=== PATIENT | female | born 1965 | race Caucasian/White ===

== ENCOUNTER 2016-09-03 14:13 | Emergency (ER) | payer OTHER ==
[~2016-09-03] VITALS: Ht 165.1 cm; Wt 77.1 kg
[~2016-09-03 14:13] MED LIST: NAPROSYN500 MG PO; PERCOCET 325 MG1 TA5 PO; PRILOSEC20 MG PO; PROZAC20 MG PO; SEROQUEL300 MG PO; VICODIN 500 MG-1 TAB PO; XANAX1 MG PO
[2016-09-03 14:30] VITALS: BP 129/83
[2016-09-03 14:48] LABS: BASO % 0.3 % (0.0-1.0); EOS # 0.1 10*3/uL (0.0-0.4); EOS % 1.8 % (1.0-4.0); HEMATOCRIT 37.9 % (37.0-47.0); HEMOGLOBIN 12.7 g/dl (12.0-16.0); LYMPH # 2.7 10*3/uL (1.3-4.4); LYMPH % 37.2 % (27.0-41.0); MEAN CORPUSCULAR HGB 30.8 pg (27.0-31.0); MEAN CORPUSCULAR HGB CONC 33.5 g/dl (33.0-37.0); MEAN PLATELET VOLUME 9.8 fl (9.6-12.3); MONO # 0.5 10*3/uL (0.1-1.0); MONO % 6.3 % (3.0-9.0); NEUT % 54.3 % (47.0-73.0); PLATELET COUNT AUTOMATED 259 10*3/uL (130-400); RED BLOOD COUNT 4.12 10*6/uL (4.10-5.10); RED CELL DISTRI WIDTH 13.3 % (0-14.5); WHITE BLOOD COUNT 7.3 10*3/uL (4.8-10.8)
[2016-09-03 14:56] LABS: INTERNATIONAL NORM RATIO 0.9 (2.0-3.5)
[2016-09-03 15:02] LABS: ALBUMIN 3.6 gm/dl (3.1-4.5); BILIRUBIN, TOTAL 0.3 mg/dl (0.2-1.0); POTASSIUM 4.4 mmol/L (3.5-5.1); TOTAL PROTEIN 7.1 gm/dL (6.4-8.2)
== END 2016-09-03 16:34 | disposition home or self-care (01) ==
LOC: ED 14:13
PROVIDERS: Physician Assistant
DX: M79.662 Pain in left lower leg (principal); E86.0 Dehydration; Z79.899 Other long term (current) drug therapy

== ENCOUNTER → 2017-04-11 | Outpatient (CLI) | payer OTHER | END | disposition home or self-care (01) | LOC: RAD 13:55 | DX: R09.89 Other specified symptoms and signs involving the circulatory and respiratory systems (principal); Z87.01 Personal history of pneumonia (recurrent) ==

== ENCOUNTER 2017-11-08 07:53 | Inpatient (IN) | payer OTHER ==
[~2017-11-08] VITALS: Ht 165.1 cm; Wt 83.5 kg
--- NOTE | ~2017-11-08 | EKG ---
[place], [place] ELECTROCARDIOGRAM REPORT NAME: MJ WALL UNIT #: [id number] ROOM: 528 DOCTOR: JULIEN DRAFT REPORT BIRTHDATE: [birth year] [facility] Test Date: 2017-11-08 Test Time: 13:59:47 Pat Name: MJ WALL Department: Room: 528 Gender: F Percussion Instrument Repairer: JINNY : 1965 Requested By: ASHKAN ARIAS Order Number: [id number] Reading MD: Marissa Mahajan MD Measurements Intervals [place] Rate: 97 P: 34 NM: 122 QRS: 33 QRSD: 95 T: 11 QT: 346 QTc: 440 Interpretive Statements Sinus rhythm Abnormal R-wave progression, early transition Borderline T wave abnormalities Electronically Signed On 11-10-2017 9:36:50 PDT by Marissa Mahajan MD CM:EKGRPT:ELECTROCARDIOGRAM REPORT [id number] ASHKAN VICTORIA DRAFT REPORT ASHKAN ARIAS MD
--- NOTE | ~2017-11-08 | EKG ---
[place], [place] ELECTROCARDIOGRAM REPORT NAME: MJ WALL UNIT #: [id number] ROOM: 528 DOCTOR: JULIEN DRAFT REPORT BIRTHDATE: [birth year] [facility] Test Date: 2017-11-08 Test Time: 11:04:13 Pat Name: MJ WALL Department: Room: 528 Gender: F Credit Risk Specialist: JINNY : 1965 Requested By: ASHKAN ARIAS Order Number: [id number] Reading MD: Marissa Mahajan MD Measurements Intervals [place] Rate: 95 P: 42 [place]: 133 QRS: 52 QRSD: 96 T: 6 QT: 349 QTc: 439 Interpretive Statements Sinus rhythm Abnormal R-wave progression, early transition Borderline T abnormalities, anterior leads Electronically Signed On 11-10-2017 9:36:26 PDT by Marissa Mahajan MD CM:EKGRPT:ELECTROCARDIOGRAM REPORT [id number] ASHKAN VICTORIA DRAFT REPORT ASHKAN ARIAS MD
--- NOTE | ~2017-11-08 | EKG ---
[place], [place] ELECTROCARDIOGRAM REPORT NAME: MJ WALL UNIT #: [id number] ROOM: 528 DOCTOR: JULIEN DRAFT REPORT BIRTHDATE: [birth year] [facility] Test Date: 2017-11-08 Test Time: 08:01:10 Pat Name: MJ WALL Department: Room: 528 Gender: F Fixer Supervisor: Johana Cartagena : 1965 Requested By: ASHKAN ARIAS Order Number: [id number] Reading MD: Marissa Mahajan MD Measurements Intervals [place] Rate: 91 P: 34 [place]: 121 QRS: 39 QRSD: 96 T: 5 QT: 356 QTc: 439 Interpretive Statements Sinus rhythm Borderline T abnormalities, diffuse leads Electronically Signed On 11-10-2017 9:36:11 PDT by Marissa Mahajan MD CM:EKGRPT:ELECTROCARDIOGRAM REPORT [id number] ASHKAN VICTORIA DRAFT REPORT ASHKAN ARIAS MD
[2017-11-08 07:53] VITALS: BP 157/109
[2017-11-08 08:12] LABS: BASO % 0.3 % (0.0-1.0); EOS # 0.1 10*3/uL (0.0-0.4); EOS % 1.2 % (1.0-4.0); HEMATOCRIT 36.8 % (37.0-47.0); HEMOGLOBIN 12.3 g/dl (12.0-16.0); LYMPH # 2.7 10*3/uL (1.3-4.4); LYMPH % 23.6 % (27.0-41.0); MEAN CELL VOLUME 95.1 fl (81.0-99.0); MEAN CORPUSCULAR HGB 31.8 pg (27.0-31.0); MEAN CORPUSCULAR HGB CONC 33.4 g/dl (33.0-37.0); MEAN PLATELET VOLUME 9.8 fl (9.6-12.3); MONO # 0.7 10*3/uL (0.1-1.0); MONO % 5.9 % (3.0-9.0); NEUT # 7.7 10*3/uL (2.3-7.9); NEUT % 68.6 % (47.0-73.0); PLATELET COUNT AUTOMATED 225 10*3/uL (130-400); RED BLOOD COUNT 3.87 10*6/uL (4.10-5.10); RED CELL DISTRI WIDTH 13.2 % (0-14.5); WHITE BLOOD COUNT 11.3 10*3/uL (4.8-10.8)
[2017-11-08 08:23] VITALS: BP 138/99
[2017-11-08 08:23] LABS: ACT PARTIAL THROMBO TIME 25.6 SECONDS (20.8-31.5); INTERNATIONAL NORM RATIO 0.9 (2.0-3.5)
[2017-11-08 08:29] LABS: ALBUMIN 3.6 gm/dl (3.1-4.5); ALKALINE PHOSPHATASE 79 U/L (45-117); BUN 22 mg/dl (7-24); CHLORIDE 107 mmol/L (98-107); CREATININE 1.21 mg/dL (0.55-1.02); SGOT/AST 16 IU/L (3-35); SGPT/ALT 30 U/L (12-78); SODIUM 142 mmol/L (136-145); TOTAL PROTEIN 7.2 gm/dL (6.4-8.2)
[2017-11-08 08:31] LABS: TROPONIN I < 0.015 ng/ml (<0.045)
[2017-11-08 08:45] VITALS: BP 122/88
[2017-11-08 12:00] VITALS: BP 124/72
[2017-11-08 16:00] VITALS: BP 130/85
[2017-11-08 20:00] VITALS: BP 149/94
[2017-11-09] VITALS: BP 130/85
[2017-11-09 07:04] LABS: BASO % 0.2 % (0.0-1.0); EOS # 0.3 10*3/uL (0.0-0.4); EOS % 2.5 % (1.0-4.0); HEMATOCRIT 35.4 % (37.0-47.0); HEMOGLOBIN 11.7 g/dl (12.0-16.0); LYMPH # 1.5 10*3/uL (1.3-4.4); LYMPH % 13.2 % (27.0-41.0); MEAN CELL VOLUME 94.9 fl (81.0-99.0); MEAN CORPUSCULAR HGB 31.4 pg (27.0-31.0); MEAN CORPUSCULAR HGB CONC 33.1 g/dl (33.0-37.0); MONO # 0.6 10*3/uL (0.1-1.0); MONO % 5.5 % (3.0-9.0); NEUT # 8.6 10*3/uL (2.3-7.9); NEUT % 78.3 % (47.0-73.0); PLATELET COUNT AUTOMATED 209 10*3/uL (130-400); RED BLOOD COUNT 3.73 10*6/uL (4.10-5.10); RED CELL DISTRI WIDTH 13.2 % (0-14.5)
[2017-11-09 07:31] LABS: PHOSPHOROUS 2.6 mg/dL (2.5-4.9)
[2017-11-09 07:36] LABS: THYROID STIM HORMONE (HS) 1.89 uIU/ml (0.358-4.75)
[2017-11-09 08:00] VITALS: BP 127/78
[2017-11-09 08:09] LABS: VITAMIN D, 25-HYDROXY 12.7 ng/mL (30-100)
[2017-11-09] MEDS ORDERED: PANTOPRAZOLE SO40 MG PO (08:14)
[2017-11-09] MEDS ORDERED: VITAMIN D-32000 UNI1 PO (08:14)
[2017-12-10] MEDS ORDERED: VITAMIN D-32000 UNI1 PO (18:44)
[2017-12-10] MEDS ORDERED: PANTOPRAZOLE SO40 MG PO (18:44)
== END 2017-11-09 10:31 | disposition home or self-care (01) | DRG 313 ==
LOC: ED 07:53 → EDHOLD 08:19 → 5E 08:24
PROVIDERS: Emergency Medicine; Student in an Organized Health Care Education/Training Program
DX: R07.9 Chest pain, unspecified (principal); D72.810 Lymphocytopenia; K21.9 Gastro-esophageal reflux disease without esophagitis; F41.9 Anxiety disorder, unspecified; D72.829 Elevated white blood cell count, unspecified; R00.0 Tachycardia, unspecified; Z79.899 Other long term (current) drug therapy; Z87.01 Personal history of pneumonia (recurrent); Z80.8 Family history of malignant neoplasm of other organs or systems; Z84.89 Family history of other specified conditions

== ENCOUNTER → 2017-11-19 | Outpatient (CLI) | payer OTHER ==
[~2017-11-19] MED LIST changes: +PANTOPRAZOLE SO40 MG PO; +VITAMIN D-32000 UNI1 PO
--- NOTE | ~2017-11-19 | ST ---
[place], [place] EXERCISE STRESS TEST [id number] UN[facility] #: [id number] ROOM: DOCTOR: SHANDA NORTON,MARK BIRTHDATE: [birth year] DOS: 11/19/2017 EXERCISE NUCLEAR STRESS TEST. REFERRING PHYSICIAN: Dr. Martell and Dr. Vicente REASON FOR TEST: Chest pain. PHYSICAL EXAMINATION NECK: Supple. LUNGS: Clear anteriorly. HEART: Regular rhythm. PROTOCOL: Amarjit protocol. Total stress time 6 minutes 15 seconds. Maximum heart rate 146, which is 86% target heart rate. Peak blood pressure 128/64, adequate response. Total mets 7.4 mets. Monge treadmill score +6. SYMPTOMS: The patient is chest pain free. EKG: Resting EKG showed sinus rhythm. Stress EKG showed no ischemia, no arrhythmias. CONCLUSION: Clinically, the patient is chest pain free. EKG nonischemic. POST-STRESS COMPLICATIONS: None. MARK LAND MD CM:STRESS:EXERCISE STRESS TEST REPORT [id number] MARK LAND MD
== END | disposition home or self-care (01) ==
LOC: CARD 07:03
DX: R07.89 Other chest pain (principal)

== ENCOUNTER → 2018-05-13 | Day surgery (SDC) | payer OTHER ==
[~2018-05-13] VITALS: Ht 165.1 cm; Wt 77.1 kg
[~2018-05-13] MED LIST changes: +PEPCID20 MG PO
--- NOTE | ~2018-05-13 | O ---
[place], [place] OPERATIVE NOTE NAME: MJ WALL UNIT #: [id number] ROOM: DOCTOR: GIOVANNY NORTONLOTTIE BIRTHDATE: [birth year] DOS: 05/13/2018 GASTROENDOSCOPIC REPORT HISTORY OF PRESENT ILLNESS. A 52-year-old patient who was presented with chief complaint of change in bowel habits. Family history of colonic carcinoma, dyspepsia, on PPI trial. ALLERGIES: No known medication. PAST MEDICAL HISTORY: Anxiety. PAST SURGICAL HISTORY: Cervical ablation, breast biopsy negative. SOCIAL HISTORY: Nonsmoker, social alcohol consumer. FAMILY HISTORY: Grandfather with colonic carcinoma. MEDICATIONS: List has been reviewed. PROCEDURE: Today's procedure part of investigation is panendoscopy and colonoscopy. PREMEDICATION: Propofol. SCOPE: Olympus forward-viewing gastroscope Q10 video. REPORT: After putting the patient in left lateral position and application of lubricant to the scope, the scope was introduced. Thereafter, under direct visualization, advanced through the length of esophagus without difficulty. Irregular Z line at the esophagogastric junction was approached and irregularity is mild; however, multiple biopsies obtained ruling out coincidental Fernandez's. A 2 cm hiatal hernia noticed. Gastritis seen. Antral biopsy obtained. Duodenal bulb, second and third part within normal limit. The patient extubated after GI reflection of the scope, which reveals hiatal hernia to be benign. IMPRESSION: Irregular Z line, hiatal hernia, gastritis, status post biopsy. PLAN AND DISCUSSION: This patient requires to be on at least 20 mg of famotidine that I am going to place her on to reduce the acidity and exposure to a less acidic environment, antireflux measures with elevation of the head of the bed 6 inches all the time, avoiding greasy food and late eating and she should have elevation of the head of the bed at least 6 inches all time. Furthermore, awaiting H. pylori results and the Z-line biopsies. On the other hand, we are going to proceeding with colonoscopic evaluation. PROCEDURE #2 INDICATIONS: The patient has presented with chief complaint of family history of colonic carcinoma and grandfather, concerned about some change in bowel [place], [place] OPERATIVE NOTE NAME: MJ WALL UNIT #: [id number] ROOM: DOCTOR: GIOVANNY NORTON,LOTTIE BIRTHDATE: [birth year] habits. PROCEDURE: Today's procedure part of investigation is colonoscopy plus biopsy. PREMEDICATION: Propofol. SCOPE: Olympus forward-viewing colonoscope 10L video. REPORT: After putting the patient in left lateral position and application of lubricant to the scope, the scope was introduced. Thereafter, under direct visualization, advanced through the length of colon without difficulty. Colon mucosa and vascularity carefully examined. Base of cecum explored and tortuosity of hepatic flexure was easily experienced. This was maneuvered easily, scope was gradually withdrawn from ascending, transverse, descending colon. After the base of the cecum was photographed, appendiceal orifice identified, ileocecal valve was defined. Air was suctioned out. The patient was extubated, tolerated the procedure well. IMPRESSION: Tortuous colon. Otherwise, no colonic pathology. PLAN: High fiber diet. ACTIVITY: Ad jon. FOLLOWUP: Routinely with you in office. Follow-up colonoscopy in 10 years unless there are symptoms in which case follow-up should be as needed. Photographic series has been attached to the chart for future reference. Thank you very much indeed. LOTTIE BALTAZAR MD CM:OPRECORD:OPERATIVE NOTE [id number] LOTTIE BALTAZAR MD 06/16/18 1457 interface
[2018-05-13 07:30] VITALS: BP 124/82
[2018-05-13 09:25] VITALS: BP 135/77
[2018-05-13 09:40] VITALS: BP 123/87
[2018-05-13 09:55] VITALS: BP 121/77
== END | disposition home or self-care (01) ==
LOC: SDC 03-27 14:45
DX: K63.89 Other specified diseases of intestine (principal); K29.50 Unspecified chronic gastritis without bleeding; K21.0 Gastro-esophageal reflux disease with esophagitis; K44.9 Diaphragmatic hernia without obstruction or gangrene; Z80.0 Family history of malignant neoplasm of digestive organs; F32.9 Major depressive disorder, single episode, unspecified; F41.9 Anxiety disorder, unspecified; Z98.890 Other specified postprocedural states; Z79.899 Other long term (current) drug therapy

== ENCOUNTER → 2019-04-07 | Day surgery (SDC) | payer OTHER ==
[2019-04-05 14:02] LABS: BASO % 0.4 % (0.0-1.0); EOS # 0.1 10*3/uL (0.0-0.4); EOS % 0.7 % (1.0-4.0); HEMATOCRIT 40.6 % (37.0-47.0); HEMOGLOBIN 13.3 g/dl (12.0-16.0); LYMPH # 2.8 10*3/uL (1.3-4.4); MEAN CELL VOLUME 96.9 fl (81.0-99.0); MEAN CORPUSCULAR HGB 31.7 pg (27.0-31.0); MEAN CORPUSCULAR HGB CONC 32.8 g/dl (33.0-37.0); MEAN PLATELET VOLUME 9.5 fl (9.6-12.3); MONO # 0.5 10*3/uL (0.1-1.0); MONO % 6.3 % (3.0-9.0); NEUT % 59.4 % (47.0-73.0); PLATELET COUNT AUTOMATED 295 10*3/uL (130-400); RED BLOOD COUNT 4.19 10*6/uL (4.10-5.10); RED CELL DISTRI WIDTH 13.1 % (0-14.5); WHITE BLOOD COUNT 8.4 10*3/uL (4.8-10.8)
[2019-04-05 14:14] LABS: INTERNATIONAL NORM RATIO 0.9 (2.0-3.5)
[2019-04-05 14:23] LABS: CREATININE 1.28 mg/dL (0.55-1.02); POTASSIUM 4.6 mmol/L (3.5-5.1)
[2019-04-07] VITALS (8 sets, daily range): BP systolic 131–160; BP diastolic 67–99
[~2019-04-07] VITALS: Ht 165.1 cm; Wt 77.1 kg
[~2019-04-07] MED LIST changes: +DOXYCYCLINE100 M3 PO; +TRAMADOL HYDRO100 MG PO; +XARELTO10 MG PO
== END | disposition home or self-care (01) ==
LOC: SDC 04-01 13:15
PROVIDERS: Podiatrist
DX: M19.072 Primary osteoarthritis, left ankle and foot (principal); M21.962 Unspecified acquired deformity of left lower leg; M21.612 Bunion of left foot; K21.9 Gastro-esophageal reflux disease without esophagitis; F41.9 Anxiety disorder, unspecified; F32.9 Major depressive disorder, single episode, unspecified; Z88.8 Allergy status to other drugs, medicaments and biological substances; Z98.890 Other specified postprocedural states; Z82.3 Family history of stroke

== ENCOUNTER → 2019-04-27 | Outpatient (CLI) | payer OTHER ==
[2019-04-27 14:40] LABS: ALBUMIN 3.9 gm/dl (3.1-4.5); CREATININE 1.25 mg/dL (0.55-1.02); POTASSIUM 4.5 mmol/L (3.5-5.1); TOTAL PROTEIN 7.7 gm/dL (6.4-8.2)
== END | disposition home or self-care (01) ==
LOC: LAB 13:55
PROVIDERS: Pathology Hematology
DX: M19.072 Primary osteoarthritis, left ankle and foot (principal)

== ENCOUNTER → 2019-05-12 | Outpatient (CLI) | payer OTHER | END | disposition home or self-care (01) | LOC: US 13:00 | DX: M79.605 Pain in left leg (principal) ==

== ENCOUNTER → 2019-08-11 | Outpatient (CLI) | payer OTHER | END | disposition home or self-care (01) | LOC: COVID19 09:25 | DX: Z03.818 Encounter for observation for suspected exposure to other biological agents ruled out (principal) ==

== ENCOUNTER → 2019-09-17 | Outpatient (CLI) | payer OTHER | END | disposition home or self-care (01) | LOC: US 09-16 13:30 | DX: D25.1 Intramural leiomyoma of uterus (principal) ==

== ENCOUNTER → 2019-10-27 | Outpatient (CLI) | payer OTHER ==
[2019-10-27 13:22] LABS: BASO % 0.3 % (0.0-1.0); EOS # 0.1 10*3/uL (0.0-0.4); EOS % 1.6 % (1.0-4.0); HEMATOCRIT 40.6 % (37.0-47.0); LYMPH # 2.2 10*3/uL (1.3-4.4); LYMPH % 31.5 % (27.0-41.0); MEAN CELL VOLUME 95.3 fl (81.0-99.0); MEAN CORPUSCULAR HGB CONC 32.5 g/dl (33.0-37.0); MEAN PLATELET VOLUME 9.9 fl (9.6-12.3); MONO # 0.7 10*3/uL (0.1-1.0); MONO % 9.4 % (3.0-9.0); NEUT % 57.1 % (47.0-73.0); PLATELET COUNT AUTOMATED 290 10*3/uL (130-400); RED BLOOD COUNT 4.26 10*6/uL (4.10-5.10); RED CELL DISTRI WIDTH 14.1 % (0-14.5); WHITE BLOOD COUNT 6.9 10*3/uL (4.8-10.8)
[2019-10-27 13:51] LABS: ALBUMIN 3.6 gm/dl (3.1-4.5); CREATININE 1.26 mg/dL (0.55-1.02); POTASSIUM 4.1 mmol/L (3.5-5.1); TOTAL PROTEIN 7.7 gm/dL (6.4-8.2)
[2019-10-27 13:57] LABS: THYROID STIM HORMONE (HS) 2.1 uIU/ml (0.358-4.75)
== END | disposition home or self-care (01) ==
LOC: LAB 01:36
PROVIDERS: ATTEND Pathology Hematology
DX: R53.83 Other fatigue (principal); R73.03 Prediabetes

== ENCOUNTER → 2019-11-22 | Outpatient (CLI) | payer OTHER | END | disposition home or self-care (01) | LOC: MRI 11:00 | PROVIDERS: ATTEND Podiatrist | DX: M76.822 Posterior tibial tendinitis, left leg (principal); Z98.890 Other specified postprocedural states ==

== ENCOUNTER → 2019-11-26 | Outpatient (CLI) | payer OTHER | END | disposition home or self-care (01) | LOC: COVID19 02:33 | PROVIDERS: ATTEND Internal Medicine | DX: R05 Cough (principal); Z20.828 Contact with and (suspected) exposure to other viral communicable diseases ==

== ENCOUNTER → 2019-12-22 | Outpatient (CLI) | payer OTHER ==
[~2019-12-22] MED LIST changes: +COLACE100 MG PO; +PERCOCET 7.5 MG-325 PO; +PERCOCET 7.5-31 EACH PO; +PROPRANOLOL HCL60 MG PO; +VITAMIN D3100 MCG PO
== END | disposition home or self-care (01) ==
LOC: RAD 10:36
PROVIDERS: ATTEND Pathology Hematology
DX: M19.072 Primary osteoarthritis, left ankle and foot (principal); M19.071 Primary osteoarthritis, right ankle and foot; Z96.698 Presence of other orthopedic joint implants

== ENCOUNTER 2020-01-24 20:52 | Inpatient (IN) | payer OTHER ==
[~2020-01-24] VITALS: Ht 165.1 cm; Wt 82.2 kg
[~2020-01-24 20:52] MED LIST changes: -COLACE100 MG PO; -PERCOCET 7.5 MG-325 PO; -PERCOCET 7.5-31 EACH PO; -PROPRANOLOL HCL60 MG PO; -VITAMIN D3100 MCG PO
[2020-01-24 21:15] VITALS: BP 78/42
[2020-01-24 22:00] VITALS: BP 77/50
[2020-01-24 22:09] LABS: BASO % 0.2 % (0.0-1.0); EOS # 0.1 10*3/uL (0.0-0.4); EOS % 1.6 % (1.0-4.0); HEMATOCRIT 37.7 % (37.0-47.0); LYMPH # 0.5 10*3/uL (1.3-4.4); LYMPH % 7.6 % (27.0-41.0); MEAN CELL VOLUME 95.4 fl (81.0-99.0); MEAN CORPUSCULAR HGB 30.6 pg (27.0-31.0); MEAN CORPUSCULAR HGB CONC 32.1 g/dl (33.0-37.0); MEAN PLATELET VOLUME 9.5 fl (9.6-12.3); MONO # 0.2 10*3/uL (0.1-1.0); MONO % 2.6 % (3.0-9.0); NEUT # 5.6 10*3/uL (2.3-7.9); NEUT % 87.5 % (47.0-73.0); PLATELET COUNT AUTOMATED 191 10*3/uL (130-400); RED BLOOD COUNT 3.95 10*6/uL (4.10-5.10); RED CELL DISTRI WIDTH 13.4 % (0-14.5); WHITE BLOOD COUNT 6.4 10*3/uL (4.8-10.8)
[2020-01-24 22:21] LABS: ALKALINE PHOSPHATASE 95 U/L (45-117); BUN 33 mg/dl (7-24); CHLORIDE 107 mmol/L (98-107); CREATININE 3.96 mg/dL (0.55-1.02); LDH 790 U/L (84-246); POTASSIUM 3.7 mmol/L (3.5-5.1); SGOT/AST 837 IU/L (3-35); SGPT/ALT 207 U/L (12-78); SODIUM 137 mmol/L (136-145); TOTAL PROTEIN 6.7 gm/dL (6.4-8.2); TROPONIN I < 0.015 ng/ml (<0.045)
[2020-01-24 22:30] VITALS: BP 83/61
[2020-01-24 22:35] LABS: ARTERIAL BLOOD GAS PH 7.338 (7.35-7.45)
[2020-01-24 23:00] VITALS: BP 82/57
[2020-01-25] VITALS (7 sets, daily range): BP systolic 94–156; BP diastolic 61–95
[2020-01-25] MEDS ORDERED: VITAMIN D3100 MCG PO (00:29)
[2020-01-25] MEDS ORDERED: PROPRANOLOL HCL60 MG PO (00:31)
[2020-01-25 06:09] LABS: ALBUMIN 2.7 gm/dl (3.1-4.5); CREATININE 3.73 mg/dL (0.55-1.02); POTASSIUM 4.5 mmol/L (3.5-5.1); TOTAL PROTEIN 6.1 gm/dL (6.4-8.2)
[2020-01-25 06:25] LABS: HEMATOCRIT 34.9 % (37.0-47.0); MEAN CELL VOLUME 95.9 fl (81.0-99.0); MEAN CORPUSCULAR HGB CONC 32.4 g/dl (33.0-37.0); MEAN PLATELET VOLUME 9.9 fl (9.6-12.3); PLATELET COUNT AUTOMATED 176 10*3/uL (130-400); RED BLOOD COUNT 3.64 10*6/uL (4.10-5.10); RED CELL DISTRI WIDTH 13.5 % (0-14.5); WHITE BLOOD COUNT 5.4 10*3/uL (4.8-10.8)
[2020-01-25 06:51] LABS: PLATELET SUFFICIENCY NORMAL (NORMAL); TOTAL CELLS COUNTED 100 #CELLS
[2020-01-25 07:43] LABS: FERRITIN 688.9 ng/mL (10.0-291.0); VITAMIN D, 25-HYDROXY 43.2 ng/mL (30-100)
[2020-01-25 16:42] LABS: EOS % 0.2 % (1.0-4.0); HEMATOCRIT 34.9 % (37.0-47.0); LYMPH # 1.1 10*3/uL (1.3-4.4); LYMPH % 18.3 % (27.0-41.0); MEAN CORPUSCULAR HGB 31.5 pg (27.0-31.0); MEAN CORPUSCULAR HGB CONC 32.1 g/dl (33.0-37.0); MEAN PLATELET VOLUME 9.9 fl (9.6-12.3); MONO # 0.3 10*3/uL (0.1-1.0); MONO % 4.8 % (3.0-9.0); NEUT # 4.5 10*3/uL (2.3-7.9); NEUT % 76.4 % (47.0-73.0); PLATELET COUNT AUTOMATED 199 10*3/uL (130-400); RED BLOOD COUNT 3.56 10*6/uL (4.10-5.10); RED CELL DISTRI WIDTH 13.6 % (0-14.5); WHITE BLOOD COUNT 5.9 10*3/uL (4.8-10.8)
[2020-01-25 17:15] LABS: ALBUMIN 2.7 gm/dl (3.1-4.5); CREATININE 4.09 mg/dL (0.55-1.02); POTASSIUM 4.4 mmol/L (3.5-5.1); TOTAL PROTEIN 6.4 gm/dL (6.4-8.2)
[2020-01-26] VITALS: BP 138/90
[2020-01-26 04:30] VITALS: BP 157/95
[2020-01-26 06:10] LABS: ALBUMIN 2.8 gm/dl (3.1-4.5); CREATININE 3.35 mg/dL (0.55-1.02); POTASSIUM 4.5 mmol/L (3.5-5.1); TOTAL PROTEIN 6.2 gm/dL (6.4-8.2)
[2020-01-26 06:15] LABS: HEMATOCRIT 35.9 % (37.0-47.0); LYMPH # 0.7 10*3/uL (1.3-4.4); LYMPH % 12.3 % (27.0-41.0); MEAN CORPUSCULAR HGB CONC 32.3 g/dl (33.0-37.0); MEAN PLATELET VOLUME 9.5 fl (9.6-12.3); MONO # 0.1 10*3/uL (0.1-1.0); MONO % 1.5 % (3.0-9.0); NEUT % 85.5 % (47.0-73.0); PLATELET COUNT AUTOMATED 203 10*3/uL (130-400); RED BLOOD COUNT 3.74 10*6/uL (4.10-5.10); RED CELL DISTRI WIDTH 13.7 % (0-14.5); WHITE BLOOD COUNT 5.8 10*3/uL (4.8-10.8)
[2020-01-26 08:00] VITALS: BP 140/92
[2020-01-26 10:05] LABS: ABG BASE EXCESS -5.7 mmol/L (-2.0-2.0); ARTERIAL BLOOD GAS PH 7.306 (7.35-7.45)
[2020-01-26 12:00] VITALS: BP 155/96
[2020-01-26 16:00] VITALS: BP 133/87
[2020-01-26 17:06] LABS: ALBUMIN 2.9 gm/dl (3.1-4.5); CREATININE 3.18 mg/dL (0.55-1.02); POTASSIUM 4.4 mmol/L (3.5-5.1); TOTAL PROTEIN 6.7 gm/dL (6.4-8.2)
[2020-01-26 20:00] VITALS: BP 132/84
[2020-01-26 20:11] LABS: ARTERIAL BLOOD GAS PH 7.393 (7.35-7.45)
[2020-01-27] VITALS: BP 132/89
[2020-01-27 03:34] LABS: ALBUMIN 2.9 gm/dl (3.1-4.5); CREATININE 2.65 mg/dL (0.55-1.02); POTASSIUM 4.1 mmol/L (3.5-5.1); TOTAL PROTEIN 6.4 gm/dL (6.4-8.2)
[2020-01-27 04:00] VITALS: BP 120/87
[2020-01-27 06:22] LABS: HEMATOCRIT 35.6 % (37.0-47.0); LYMPH # 1.1 10*3/uL (1.3-4.4); LYMPH % 16.6 % (27.0-41.0); MEAN CORPUSCULAR HGB 31.1 pg (27.0-31.0); MEAN CORPUSCULAR HGB CONC 34.6 g/dl (33.0-37.0); MEAN PLATELET VOLUME 10.1 fl (9.6-12.3); MONO # 0.1 10*3/uL (0.1-1.0); MONO % 2.1 % (3.0-9.0); NEUT # 5.4 10*3/uL (2.3-7.9); NEUT % 80.6 % (47.0-73.0); PLATELET COUNT AUTOMATED 238 10*3/uL (130-400); RED BLOOD COUNT 3.95 10*6/uL (4.10-5.10); RED CELL DISTRI WIDTH 13.5 % (0-14.5); WHITE BLOOD COUNT 6.7 10*3/uL (4.8-10.8)
[2020-01-27 06:23] LABS: MEAN CELL VOLUME 90.1 fl (81.0-99.0)
[2020-01-27 08:00] VITALS: BP 144/94
[2020-01-27 08:54] LABS: ABG BASE EXCESS -1.8 mmol/L (-2.0-2.0); ARTERIAL BLOOD GAS PH 7.356 (7.35-7.45)
[2020-01-27 12:00] VITALS: BP 140/60
[2020-01-27 16:00] VITALS: BP 144/96
[2020-01-27 20:00] VITALS: BP 158/98
[2020-01-28] VITALS: BP 148/66
[2020-01-28 04:00] VITALS: BP 115/67
[2020-01-28 06:13] LABS: HEMATOCRIT 36.9 % (37.0-47.0); MEAN CELL VOLUME 92.7 fl (81.0-99.0); MEAN CORPUSCULAR HGB 30.9 pg (27.0-31.0); MEAN CORPUSCULAR HGB CONC 33.3 g/dl (33.0-37.0); MEAN PLATELET VOLUME 9.6 fl (9.6-12.3); PLATELET COUNT AUTOMATED 242 10*3/uL (130-400); RED BLOOD COUNT 3.98 10*6/uL (4.10-5.10); RED CELL DISTRI WIDTH 13.6 % (0-14.5); WHITE BLOOD COUNT 5.8 10*3/uL (4.8-10.8)
[2020-01-28 06:19] LABS: ALBUMIN 2.9 gm/dl (3.1-4.5); CREATININE 2.3 mg/dL (0.55-1.02); TOTAL PROTEIN 6.7 gm/dL (6.4-8.2)
[2020-01-28 06:50] LABS: PLATELET SUFFICIENCY NORMAL (NORMAL); TOTAL CELLS COUNTED 100 #CELLS
[2020-01-28 08:00] VITALS: BP 129/92
[2020-01-28 08:44] LABS: ABG BASE EXCESS 0.9 mmol/L (-2.0-2.0); ARTERIAL BLOOD GAS PH 7.412 (7.35-7.45)
[2020-01-28 12:00] VITALS: BP 140/93
[2020-01-28 14:35] LABS: ABG BASE EXCESS 1.2 mmol/L (-2.0-2.0); ARTERIAL BLOOD GAS PH 7.437 (7.35-7.45)
[2020-01-28 16:00] VITALS: BP 1115/78; BP 115/78
[2020-01-28 17:17] LABS: ABG BASE EXCESS -0.7 mmol/L (-2.0-2.0); ARTERIAL BLOOD GAS PH 7.38 (7.35-7.45)
[2020-01-28 19:28] LABS: ABG BASE EXCESS -0.3 mmol/L (-2.0-2.0); ARTERIAL BLOOD GAS PH 7.441 (7.35-7.45)
[2020-01-28 20:00] VITALS: BP 130/87
[2020-01-29] VITALS: BP 99/66
[2020-01-29 02:05] VITALS: BP 100/62
[2020-01-29 06:17] LABS: HEMATOCRIT 36.2 % (37.0-47.0); MEAN CELL VOLUME 92.8 fl (81.0-99.0); MEAN CORPUSCULAR HGB 31.3 pg (27.0-31.0); MEAN CORPUSCULAR HGB CONC 33.7 g/dl (33.0-37.0); MEAN PLATELET VOLUME 9.8 fl (9.6-12.3); PLATELET COUNT AUTOMATED 288 10*3/uL (130-400); RED CELL DISTRI WIDTH 13.6 % (0-14.5); WHITE BLOOD COUNT 9.3 10*3/uL (4.8-10.8)
[2020-01-29 06:29] LABS: ALBUMIN 3.1 gm/dl (3.1-4.5); CREATININE 2.01 mg/dL (0.55-1.02); TOTAL PROTEIN 6.9 gm/dL (6.4-8.2)
[2020-01-29 07:20] LABS: ATYPICAL LYMPHS 4 % (0-0); PLATELET SUFFICIENCY NORMAL (NORMAL); TOTAL CELLS COUNTED 100 #CELLS
[2020-01-29 08:00] VITALS: BP 110/75
[2020-01-29 09:43] LABS: ARTERIAL BLOOD GAS PH 7.432 (7.35-7.45)
[2020-01-29 12:00] VITALS: BP 120/78
[2020-01-29 16:03] VITALS: BP 140/93
[2020-01-29 19:55] LABS: ABG BASE EXCESS 4.1 mmol/L (-2.0-2.0); ARTERIAL BLOOD GAS PH 7.44 (7.35-7.45)
[2020-01-29 20:00] VITALS: BP 140/89
[2020-01-30] VITALS: BP 107/70
[2020-01-30 04:00] VITALS: BP 113/75
[2020-01-30 06:05] LABS: HEMATOCRIT 37.6 % (37.0-47.0); MEAN CELL VOLUME 92.6 fl (81.0-99.0); MEAN CORPUSCULAR HGB 30.8 pg (27.0-31.0); MEAN CORPUSCULAR HGB CONC 33.2 g/dl (33.0-37.0); MEAN PLATELET VOLUME 9.3 fl (9.6-12.3); PLATELET COUNT AUTOMATED 303 10*3/uL (130-400); RED BLOOD COUNT 4.06 10*6/uL (4.10-5.10); RED CELL DISTRI WIDTH 13.4 % (0-14.5)
[2020-01-30 06:32] LABS: ALBUMIN 3.1 gm/dl (3.1-4.5); CREATININE 1.74 mg/dL (0.55-1.02); POTASSIUM 3.9 mmol/L (3.5-5.1); TOTAL PROTEIN 6.9 gm/dL (6.4-8.2)
[2020-01-30 07:31] LABS: ATYPICAL LYMPHS 7 % (0-0); PLATELET SUFFICIENCY NORMAL (NORMAL); TOTAL CELLS COUNTED 100 #CELLS
[2020-01-30 07:36] LABS: ABG BASE EXCESS 2.1 mmol/L (-2.0-2.0); ARTERIAL BLOOD GAS PH 7.421 (7.35-7.45)
[2020-01-30 08:00] VITALS: BP 116/80
[2020-01-30 12:00] VITALS: BP 132/86
[2020-01-30 16:00] VITALS: BP 130/85
[2020-01-30 16:13] LABS: ABG BASE EXCESS 2.7 mmol/L (-2.0-2.0); ARTERIAL BLOOD GAS PH 7.42 (7.35-7.45)
[2020-01-30 20:00] VITALS: BP 141/94
[2020-01-30 20:40] LABS: ABG BASE EXCESS 3.7 mmol/L (-2.0-2.0); ARTERIAL BLOOD GAS PH 7.462 (7.35-7.45)
[2020-01-31] VITALS: BP 110/74
[2020-01-31 04:00] VITALS: BP 115/77
[2020-01-31 05:57] LABS: ALBUMIN 3.2 gm/dl (3.1-4.5); CREATININE 1.69 mg/dL (0.55-1.02); POTASSIUM 3.7 mmol/L (3.5-5.1); TOTAL PROTEIN 6.9 gm/dL (6.4-8.2)
[2020-01-31 06:10] LABS: HEMATOCRIT 36.6 % (37.0-47.0); MEAN CELL VOLUME 92.9 fl (81.0-99.0); MEAN CORPUSCULAR HGB 30.7 pg (27.0-31.0); MEAN CORPUSCULAR HGB CONC 33.1 g/dl (33.0-37.0); MEAN PLATELET VOLUME 9.7 fl (9.6-12.3); PLATELET COUNT AUTOMATED 347 10*3/uL (130-400); RED BLOOD COUNT 3.94 10*6/uL (4.10-5.10); RED CELL DISTRI WIDTH 13.2 % (0-14.5); WHITE BLOOD COUNT 16.1 10*3/uL (4.8-10.8)
[2020-01-31 06:50] LABS: PLATELET SUFFICIENCY NORMAL (NORMAL); TOTAL CELLS COUNTED 100 #CELLS
[2020-01-31 08:00] VITALS: BP 112/76
[2020-01-31 08:24] LABS: ABG BASE EXCESS 3.4 mmol/L (-2.0-2.0); ARTERIAL BLOOD GAS PH 7.434 (7.35-7.45)
[2020-01-31 12:00] VITALS: BP 123/83
[2020-01-31 15:07] LABS: ABG BASE EXCESS 2.1 mmol/L (-2.0-2.0); ARTERIAL BLOOD GAS PH 7.459 (7.35-7.45)
[2020-01-31 16:00] VITALS: BP 126/84
[2020-01-31 20:00] VITALS: BP 125/88
[2020-01-31 22:01] LABS: ABG BASE EXCESS 2.8 mmol/L (-2.0-2.0); ARTERIAL BLOOD GAS PH 7.46 (7.35-7.45)
[2020-02-01] VITALS: BP 97/62
[2020-02-01 04:00] VITALS: BP 104/67
[2020-02-01 06:06] LABS: HEMATOCRIT 34.5 % (37.0-47.0); MEAN CELL VOLUME 93.2 fl (81.0-99.0); MEAN CORPUSCULAR HGB 30.5 pg (27.0-31.0); MEAN CORPUSCULAR HGB CONC 32.8 g/dl (33.0-37.0); MEAN PLATELET VOLUME 9.6 fl (9.6-12.3); PLATELET COUNT AUTOMATED 363 10*3/uL (130-400); RED CELL DISTRI WIDTH 13.2 % (0-14.5); WHITE BLOOD COUNT 17.1 10*3/uL (4.8-10.8)
[2020-02-01 06:08] LABS: CREATININE 1.72 mg/dL (0.55-1.02); POTASSIUM 3.7 mmol/L (3.5-5.1)
[2020-02-01 07:06] LABS: PLATELET SUFFICIENCY NORMAL (NORMAL); TOTAL CELLS COUNTED 100 #CELLS
[2020-02-01 08:00] VITALS: BP 112/74
[2020-02-01 08:50] LABS: ABG BASE EXCESS 2.4 mmol/L (-2.0-2.0); ARTERIAL BLOOD GAS PH 7.42 (7.35-7.45)
[2020-02-01 12:00] VITALS: BP 124/81
[2020-02-01 16:00] VITALS: BP 135/95
[2020-02-01 20:00] VITALS: BP 134/70
[2020-02-02] VITALS: BP 140/94
[2020-02-02 06:08] LABS: HEMATOCRIT 30.4 % (37.0-47.0); MEAN CELL VOLUME 93.3 fl (81.0-99.0); MEAN CORPUSCULAR HGB 30.7 pg (27.0-31.0); MEAN CORPUSCULAR HGB CONC 32.9 g/dl (33.0-37.0); PLATELET COUNT AUTOMATED 357 10*3/uL (130-400); RED BLOOD COUNT 3.26 10*6/uL (4.10-5.10); RED CELL DISTRI WIDTH 13.2 % (0-14.5); WHITE BLOOD COUNT 24.8 10*3/uL (4.8-10.8)
[2020-02-02 06:23] LABS: ALBUMIN 3.3 gm/dl (3.1-4.5); CREATININE 1.49 mg/dL (0.55-1.02); POTASSIUM 4.4 mmol/L (3.5-5.1); TOTAL PROTEIN 6.9 gm/dL (6.4-8.2)
[2020-02-02 07:57] LABS: PLATELET SUFFICIENCY NORMAL (NORMAL); TOTAL CELLS COUNTED 100 #CELLS
[2020-02-02 08:00] VITALS: BP 124/64
[2020-02-02 12:00] VITALS: BP 117/70
[2020-02-02 16:00] VITALS: BP 124/75
[2020-02-02 20:00] VITALS: BP 137/82
[2020-02-03] VITALS: BP 104/64
[2020-02-03 07:19] LABS: HEMATOCRIT 27.1 % (37.0-47.0); MEAN CELL VOLUME 94.4 fl (81.0-99.0); MEAN CORPUSCULAR HGB 30.7 pg (27.0-31.0); MEAN CORPUSCULAR HGB CONC 32.5 g/dl (33.0-37.0); MEAN PLATELET VOLUME 10.2 fl (9.6-12.3); NUCLEATED RED BLOOD CELL 0.2 % (0.0-0.0); PLATELET COUNT AUTOMATED 296 10*3/uL (130-400); RED BLOOD COUNT 2.87 10*6/uL (4.10-5.10); RED CELL DISTRI WIDTH 13.3 % (0-14.5); WHITE BLOOD COUNT 18.9 10*3/uL (4.8-10.8)
[2020-02-03 07:34] LABS: CREATININE 1.28 mg/dL (0.55-1.02); POTASSIUM 3.9 mmol/L (3.5-5.1); TOTAL PROTEIN 6.4 gm/dL (6.4-8.2)
[2020-02-03 07:42] LABS: TOTAL CELLS COUNTED 100 #CELLS
[2020-02-03 07:43] LABS: PLATELET SUFFICIENCY NORMAL (NORMAL)
[2020-02-03 08:00] VITALS: BP 137/84
[2020-02-03 12:00] VITALS: BP 135/87
[2020-02-03 16:00] VITALS: BP 144/90
[2020-02-03 20:00] VITALS: BP 144/80
[2020-02-03 22:06] LABS: BILIRUBIN Negative (Negative); BLOOD Negative (Negative); CLARITY Clear (Clear); COLOR Yellow (Yellow); GLUCOSE Negative (Negative); KETONE Negative (Negative); LEUKO ESTERASE 2+ (Negative); NITRITE Negative (Negative); PH 5.5 (4.5-8.0); UROBILINOGEN 0.2 E.U./dl (0.0-1.0)
[2020-02-03 22:21] LABS: BACTERIA 1+; WBC 21-30 wbc/hpf (0-5)
[2020-02-04] VITALS: BP 118/83
[2020-02-04 07:34] LABS: HEMATOCRIT 24.5 % (37.0-47.0); MEAN CELL VOLUME 95.7 fl (81.0-99.0); MEAN CORPUSCULAR HGB 31.3 pg (27.0-31.0); MEAN CORPUSCULAR HGB CONC 32.7 g/dl (33.0-37.0); MEAN PLATELET VOLUME 9.5 fl (9.6-12.3); NUCLEATED RED BLOOD CELL 0.4 % (0.0-0.0); PLATELET COUNT AUTOMATED 257 10*3/uL (130-400); RED BLOOD COUNT 2.56 10*6/uL (4.10-5.10); RED CELL DISTRI WIDTH 13.5 % (0-14.5); WHITE BLOOD COUNT 11.3 10*3/uL (4.8-10.8)
[2020-02-04 08:50] LABS: PLATELET SUFFICIENCY NORMAL (NORMAL); POLYCHROMASIA SLIGHT; TOTAL CELLS COUNTED 100 #CELLS
[2020-02-04] MEDS ORDERED: COLACE100 MG PO (08:56)
[2020-02-04] MEDS ORDERED: PERCOCET 7.5 MG-325 PO (08:56)
[2020-02-04] MEDS ORDERED: PERCOCET 7.5-31 EACH PO (08:59)
== END 2020-02-04 12:22 | disposition home or self-care (01) | DRG 871 ==
LOC: ICCU 20:52 → 4E 20:52 → ICCU 01-25 01:36 → 4E 01-25 13:57 → ICCU 01-26 22:20 → 4E 02-01 20:47
PROVIDERS: Hospitalist; Internal Medicine; Internal Medicine Critical Care Medicine; Social Worker Clinical; Student in an Organized Health Care Education/Training Program; ADMIT Internal Medicine; ATTEND Internal Medicine
PROC: XW033E5 Introduction of Remdesivir Anti-infective into Peripheral Vein, Percutaneous Approach, New Technology Group 5 (ICD-10-PCS; 2020-01-24)
PROC: XW033H5 Introduction of Tocilizumab into Peripheral Vein, Percutaneous Approach, New Technology Group 5 (ICD-10-PCS; 2020-01-25)
PROC: 5A09357 Assistance with Respiratory Ventilation, Less than 24 Consecutive Hours, Continuous Positive Airway Pressure (ICD-10-PCS; principal; 2020-01-27)
PROC: 5A0935A Assistance with Respiratory Ventilation, Less than 24 Consecutive Hours, High Flow/Velocity Cannula (ICD-10-PCS; 2020-01-27)
PROC: 5A09357 Assistance with Respiratory Ventilation, Less than 24 Consecutive Hours, Continuous Positive Airway Pressure (ICD-10-PCS; 2020-01-28)
PROC: 5A0935A Assistance with Respiratory Ventilation, Less than 24 Consecutive Hours, High Flow/Velocity Cannula (ICD-10-PCS; 2020-01-28)
PROC: 5A09357 Assistance with Respiratory Ventilation, Less than 24 Consecutive Hours, Continuous Positive Airway Pressure (ICD-10-PCS; 2020-01-29)
PROC: 5A0935A Assistance with Respiratory Ventilation, Less than 24 Consecutive Hours, High Flow/Velocity Cannula (ICD-10-PCS; 2020-01-29)
PROC: 5A0935A Assistance with Respiratory Ventilation, Less than 24 Consecutive Hours, High Flow/Velocity Cannula (ICD-10-PCS; 2020-01-30)
PROC: 5A09357 Assistance with Respiratory Ventilation, Less than 24 Consecutive Hours, Continuous Positive Airway Pressure (ICD-10-PCS; 2020-01-30)
PROC: 5A0935A Assistance with Respiratory Ventilation, Less than 24 Consecutive Hours, High Flow/Velocity Cannula (ICD-10-PCS; 2020-01-31)
PROC: 5A09357 Assistance with Respiratory Ventilation, Less than 24 Consecutive Hours, Continuous Positive Airway Pressure (ICD-10-PCS; 2020-01-31)
PROC: 5A0935A Assistance with Respiratory Ventilation, Less than 24 Consecutive Hours, High Flow/Velocity Cannula (ICD-10-PCS; 2020-02-01)
PROC: 5A09357 Assistance with Respiratory Ventilation, Less than 24 Consecutive Hours, Continuous Positive Airway Pressure (ICD-10-PCS; 2020-02-01)
PROC: 5A09357 Assistance with Respiratory Ventilation, Less than 24 Consecutive Hours, Continuous Positive Airway Pressure (ICD-10-PCS; 2020-02-02)
DX: A41.9 Sepsis, unspecified organism (principal); U07.1 COVID-19; N17.0 Acute kidney failure with tubular necrosis; R57.1 Hypovolemic shock; K72.00 Acute and subacute hepatic failure without coma; J12.89 Other viral pneumonia; R65.21 Severe sepsis with septic shock; J96.01 Acute respiratory failure with hypoxia; E44.0 Moderate protein-calorie malnutrition; E87.2 Acidosis; D68.59 Other primary thrombophilia; M62.82 Rhabdomyolysis; D62 Acute posthemorrhagic anemia; D72.810 Lymphocytopenia; R74.01 Elevation of levels of liver transaminase levels; E83.39 Other disorders of phosphorus metabolism; R79.89 Other specified abnormal findings of blood chemistry; F41.9 Anxiety disorder, unspecified; K21.9 Gastro-esophageal reflux disease without esophagitis; E86.0 Dehydration; F41.1 Generalized anxiety disorder; F32.9 Major depressive disorder, single episode, unspecified; S30.1XXA Contusion of abdominal wall, initial encounter; X58.XXXA Exposure to other specified factors, initial encounter; Y93.89 Activity, other specified; Y92.89 Other specified places as the place of occurrence of the external cause; Y99.8 Other external cause status; Z68.30 Body mass index [BMI] 30.0-30.9, adult; Z80.9 Family history of malignant neoplasm, unspecified; Z79.899 Other long term (current) drug therapy

== ENCOUNTER → 2020-02-21 | Outpatient (CLI) | payer OTHER ==
[~2020-02-21] MED LIST changes: +COLACE100 MG PO; +PERCOCET 7.5 MG-325 PO; +PERCOCET 7.5-31 EACH PO; +PROPRANOLOL HCL60 MG PO; +VITAMIN D3100 MCG PO
[2020-02-21 13:57] LABS: BASO % 0.4 % (0.0-1.0); EOS # 0.3 10*3/uL (0.0-0.4); EOS % 4.2 % (1.0-4.0); HEMATOCRIT 32.9 % (37.0-47.0); LYMPH % 36.8 % (27.0-41.0); MEAN CORPUSCULAR HGB 30.7 pg (27.0-31.0); MEAN CORPUSCULAR HGB CONC 30.7 g/dl (33.0-37.0); MEAN PLATELET VOLUME 9.2 fl (9.6-12.3); MONO # 0.7 10*3/uL (0.1-1.0); NEUT % 49.2 % (47.0-73.0); PLATELET COUNT AUTOMATED 436 10*3/uL (130-400); RED BLOOD COUNT 3.29 10*6/uL (4.10-5.10); RED CELL DISTRI WIDTH 14.9 % (0-14.5); WHITE BLOOD COUNT 8.1 10*3/uL (4.8-10.8)
[2020-02-21 14:12] LABS: ALBUMIN 3.7 gm/dl (3.1-4.5); CREATININE 1.25 mg/dL (0.55-1.02); POTASSIUM 4.4 mmol/L (3.5-5.1); TOTAL PROTEIN 7.8 gm/dL (6.4-8.2)
[2020-02-21 14:18] LABS: THYROID STIM HORMONE (HS) 1.59 uIU/ml (0.358-4.75)
== END | disposition home or self-care (01) ==
LOC: LAB 13:35
PROVIDERS: ATTEND Internal Medicine
DX: N17.0 Acute kidney failure with tubular necrosis (principal); U07.1 COVID-19

== ENCOUNTER → 2020-08-25 | Outpatient (CLI) | payer OTHER | END | disposition home or self-care (01) | LOC: MRI 13:00 | PROVIDERS: ATTEND Orthopaedic Surgery | DX: S83.421A Sprain of lateral collateral ligament of right knee, initial encounter (principal); S83.241A Other tear of medial meniscus, current injury, right knee, initial encounter; M23.000 Cystic meniscus, unspecified lateral meniscus, right knee; M23.300 Other meniscus derangements, unspecified lateral meniscus, right knee; M25.461 Effusion, right knee; R60.0 Localized edema; M25.861 Other specified joint disorders, right knee; X58.XXXA Exposure to other specified factors, initial encounter; Y93.89 Activity, other specified; Y92.89 Other specified places as the place of occurrence of the external cause; Y99.8 Other external cause status ==

== ENCOUNTER → 2020-09-20 | Outpatient (CLI) | payer OTHER ==
[2020-09-20 15:00] LABS: BASO % 0.4 % (0.0-1.0); BILIRUBIN Negative (Negative); BLOOD Negative (Negative); CLARITY Cloudy (Clear); COLOR Yellow (Yellow); EOS # 0.2 10*3/uL (0.0-0.4); EOS % 1.9 % (1.0-4.0); GLUCOSE Negative (Negative); HEMATOCRIT 38.6 % (37.0-47.0); KETONE Trace (Negative); LEUKO ESTERASE 2+ (Negative); LYMPH # 2.9 10*3/uL (1.3-4.4); LYMPH % 34.1 % (27.0-41.0); MEAN CELL VOLUME 96.5 fl (81.0-99.0); MEAN CORPUSCULAR HGB 31.3 pg (27.0-31.0); MEAN CORPUSCULAR HGB CONC 32.4 g/dl (33.0-37.0); MEAN PLATELET VOLUME 10.4 fl (9.6-12.3); MONO # 0.6 10*3/uL (0.1-1.0); MONO % 6.8 % (3.0-9.0); NEUT # 4.9 10*3/uL (2.3-7.9); NEUT % 56.4 % (47.0-73.0); NITRITE Negative (Negative); PH 6.5 (4.5-8.0); PLATELET COUNT AUTOMATED 300 10*3/uL (130-400); RED CELL DISTRI WIDTH 12.9 % (0-14.5); WHITE BLOOD COUNT 8.6 10*3/uL (4.8-10.8)
[2020-09-20 15:20] LABS: BACTERIA 2+; EPITHELIAL CELLS TNTC; RBC 0-2 rbc/hpf (0-2)
[2020-09-20 15:21] LABS: ALBUMIN 3.8 gm/dl (3.1-4.5); BUN 19 mg/dl (7-24); CHLORIDE 105 mmol/L (98-107); CREATININE 1.08 mg/dL (0.55-1.02); POTASSIUM 4.1 mmol/L (3.5-5.1); SODIUM 138 mmol/L (136-145)
[2020-09-20 16:24] LABS: PTH INTACT 24.9 pg/mL (18.5-88.0); VITAMIN D, 25-HYDROXY 32.1 ng/mL (30-100)
== END | disposition home or self-care (01) ==
LOC: LAB 01:46
PROVIDERS: ATTEND Internal Medicine Nephrology
DX: N18.30 Chronic kidney disease, stage 3 unspecified (principal)

== ENCOUNTER 2021-04-10 10:52 | Emergency (ER) | payer OTHER ==
[~2021-04-10] VITALS: Ht 165.1 cm; Wt 79.4 kg
[2021-04-10 12:35] VITALS: BP 112/82
== END 2021-04-10 13:37 | disposition home or self-care (01) ==
LOC: ED 10:52
DX: J02.9 Acute pharyngitis, unspecified (principal); Z20.822 Contact with and (suspected) exposure to COVID-19; Z98.890 Other specified postprocedural states

== ENCOUNTER 2021-08-19 19:07 | Emergency (ER) | payer OTHER ==
[2021-08-19 19:11] VITALS: BP 159/90
[2021-08-19] MEDS ORDERED: HYDROCODONE-AC1 EAC1 PO (21:21)
== END 2021-08-19 21:37 | disposition home or self-care (01) ==
LOC: ED 19:07
DX: T23.252A Burn of second degree of left palm, initial encounter (principal); Z98.890 Other specified postprocedural states; X15.0XXA Contact with hot stove (kitchen), initial encounter; Y93.89 Activity, other specified; Y92.89 Other specified places as the place of occurrence of the external cause; Y99.9 Unspecified external cause status

== ENCOUNTER → 2021-08-21 | Outpatient (CLI) | payer OTHER ==
[~2021-08-21] MED LIST changes: +HYDROCODONE-AC1 EAC1 PO
== END ==
LOC: WOUNDCARE 03:10
PROVIDERS: ATTEND Nurse Practitioner Family
DX: T23.152A Burn of first degree of left palm, initial encounter (principal); T31.0 Burns involving less than 10% of body surface; Y27.3XXA Contact with hot household appliance, undetermined intent, initial encounter; Y93.89 Activity, other specified; Y92.89 Other specified places as the place of occurrence of the external cause; Y99.8 Other external cause status

== ENCOUNTER → 2022-10-03 | Day surgery (SDC) | payer OTHER ==
[~2022-10-03] VITALS: Ht 165.1 cm; Wt 83.9 kg
[2022-10-03 08:21] VITALS: BP 135/94
[2022-10-03 09:10] VITALS: BP 114/82
[2022-10-03 09:25] VITALS: BP 116/91; BP 124/96
[2022-10-03 09:40] VITALS: BP 116/91
== END | disposition home or self-care (01) ==
LOC: SDC 09-30 10:15
PROVIDERS: ATTEND Surgery
DX: Z12.11 Encounter for screening for malignant neoplasm of colon (principal); K21.9 Gastro-esophageal reflux disease without esophagitis; K44.9 Diaphragmatic hernia without obstruction or gangrene; K29.50 Unspecified chronic gastritis without bleeding; F41.9 Anxiety disorder, unspecified; F32.A Depression, unspecified; Z98.890 Other specified postprocedural states; Z79.899 Other long term (current) drug therapy

== ENCOUNTER 2023-01-28 11:50 | Inpatient (IN) | payer OTHER ==
[~2023-01-28] VITALS: Ht 165.1 cm; Wt 81.6 kg
[2023-01-28 12:05] VITALS: BP 148/90
[2023-01-28 12:52] LABS: HEMATOCRIT 45.3 % (37.0-47.0); MEAN CELL VOLUME 89.7 fl (81.0-99.0); MEAN CORPUSCULAR HGB 30.1 pg (27.0-31.0); MEAN CORPUSCULAR HGB CONC 33.6 g/dl (33.0-37.0); MEAN PLATELET VOLUME 9.2 fl (9.6-12.3); PLATELET COUNT AUTOMATED 264 10*3/uL (130-400); RED BLOOD COUNT 5.05 10*6/uL (4.10-5.10); RED CELL DISTRI WIDTH 13.2 % (0-14.5); WHITE BLOOD COUNT 16.6 10*3/uL (4.8-10.8)
[2023-01-28 12:53] LABS: MANUAL DIFF REFLEX YES
[2023-01-28 13:02] LABS: ACT PARTIAL THROMBO TIME 32.4 SECONDS (20.0-32.1)
[2023-01-28 13:10] LABS: BURR CELLS FEW; TOTAL CELLS COUNTED 100 #CELLS
[2023-01-28 13:11] LABS: PLATELET SUFFICIENCY NORMAL (NORMAL); VACUOLATION OF NEUTROPHILS SLIGHT
[2023-01-28 13:23] LABS: POTASSIUM 4.3 mmol/L (3.4-5.1); TOTAL PROTEIN 8.1 gm/dL (6.0-8.0)
[2023-01-28] MEDS ORDERED: HYDROXYZINE HCL25 MG PO (13:39)
[2023-01-28 14:51] VITALS: BP 138/90
[2023-01-28 20:00] VITALS: BP 137/85
[2023-01-28 22:59] LABS: BILIRUBIN Negative (Negative); BLOOD 1+ (Negative); CLARITY Turbid (Clear); COLOR Orange (Yellow); GLUCOSE Negative (Negative); KETONE Negative (Negative); LEUKO ESTERASE 2+ (Negative); NITRITE Positive (Negative); PH 5.5 (4.5-8.0); SPECIFIC GRAVITY 1.025 (1.001-1.030); UROBILINOGEN 0.2 E.U./dl (0.0-1.0)
[2023-01-28 23:25] LABS: WBC 16-20 wbc/hpf (0-5)
[2023-01-28 23:26] LABS: BACTERIA 2+; RBC 16-20 rbc/hpf (0-2)
[2023-01-29] VITALS (11 sets, daily range): BP systolic 94–138; BP diastolic 57–83
[2023-01-29 07:01] LABS: ABG BASE EXCESS -10.1 mmol/L (-2.0-2.0); ARTERIAL BLOOD GAS PH 7.295 (7.35-7.45)
[2023-01-29 14:24] LABS: MEAN CORPUSCULAR HGB 30.3 pg (27.0-31.0); MEAN CORPUSCULAR HGB CONC 31.8 g/dl (33.0-37.0); MEAN PLATELET VOLUME 9.7 fl (9.6-12.3); PLATELET COUNT AUTOMATED 232 10*3/uL (130-400); RED CELL DISTRI WIDTH 13.9 % (0-14.5); WHITE BLOOD COUNT 14.6 10*3/uL (4.8-10.8)
[2023-01-29 14:31] LABS: MANUAL DIFF REFLEX YES
[2023-01-29 14:42] LABS: BURR CELLS FEW; PLATELET SUFFICIENCY NORMAL (NORMAL); TOTAL CELLS COUNTED 100 #CELLS; TOXIC GRANULATION SLIGHT
[2023-01-29 14:50] LABS: ARTERIAL BLOOD GAS PH 7.12 (7.35-7.45)
[2023-01-29 14:53] LABS: ALKALINE PHOSPHATASE 89 U/L (46-116); CHLORIDE 106 mmol/L (98-107); CHOLESTEROL 176 mg/dL (<200); LDL CHOLESTEROL 96 mg/dL (9-159); SGPT/ALT 633 U/L (5-49); TOTAL PROTEIN 6.6 gm/dL (6.0-8.0); TRIGLYCERIDES 143 mg/dl (<150)
[2023-01-29 15:29] LABS: HEMATOCRIT 35.3 % (37.0-47.0); MEAN CELL VOLUME 92.9 fl (81.0-99.0); MEAN CORPUSCULAR HGB 30.5 pg (27.0-31.0); MEAN CORPUSCULAR HGB CONC 32.9 g/dl (33.0-37.0); MEAN PLATELET VOLUME 9.4 fl (9.6-12.3); PLATELET COUNT AUTOMATED 227 10*3/uL (130-400); RED CELL DISTRI WIDTH 13.9 % (0-14.5); WHITE BLOOD COUNT 13.8 10*3/uL (4.8-10.8)
[2023-01-29 15:37] LABS: MANUAL DIFF REFLEX YES
[2023-01-29 15:50] LABS: PLATELET SUFFICIENCY NORMAL (NORMAL); TOTAL CELLS COUNTED 100 #CELLS
[2023-01-29 15:51] LABS: BURR CELLS FEW; ROULEAUX SLIGHT
[2023-01-29 15:52] LABS: TOXIC GRANULATION SLIGHT
[2023-01-29 15:56] LABS: ABG BASE EXCESS -12.6 mmol/L (-2.0-2.0); ARTERIAL BLOOD GAS PH 7.18 (7.35-7.45)
[2023-01-29 16:02] LABS: ALKALINE PHOSPHATASE 78 U/L (46-116); CHLORIDE 107 mmol/L (98-107); SGPT/ALT 610 U/L (5-49); TOTAL PROTEIN 6.3 gm/dL (6.0-8.0)
[2023-01-29 16:06] LABS: BUN 31 mg/dl (9-23); POTASSIUM 6.3 mmol/L (3.4-5.1)
[2023-01-29 16:07] LABS: CPK > 39000 U/L (34-171); MYOGLOBIN > 10000.0 ng/ml (13-71)
[2023-01-29 16:07] LABS: BUN 36 mg/dl (9-23)
[2023-01-29 16:09] LABS: CPK > 39000 U/L (34-171); POTASSIUM 6.9 mmol/L (3.4-5.1)
[2023-01-29 16:34] LABS: BILIRUBIN Negative (Negative); BLOOD 1+ (Negative); CLARITY Turbid (Clear); COLOR Orange (Yellow); GLUCOSE Negative (Negative); KETONE Negative (Negative); LEUKO ESTERASE 2+ (Negative); NITRITE Positive (Negative); PH 5.5 (4.5-8.0); SPECIFIC GRAVITY 1.025 (1.001-1.030); UROBILINOGEN 0.2 E.U./dl (0.0-1.0)
[2023-01-29 16:54] LABS: BACTERIA 4+; WBC 21-30 wbc/hpf (0-5)
[2023-01-29 18:39] LABS: ARTERIAL BLOOD GAS PH 7.112 (7.35-7.45)
[2023-01-29 18:54] LABS: BASO % 0.2 % (0.0-1.0); HEMATOCRIT 37.4 % (37.0-47.0); LYMPH # 1.1 10*3/uL (1.3-4.4); LYMPH % 6.6 % (27.0-41.0); MEAN CORPUSCULAR HGB 30.4 pg (27.0-31.0); MEAN PLATELET VOLUME 9.4 fl (9.6-12.3); MONO % 6.2 % (3.0-9.0); NEUT # 13.9 10*3/uL (2.3-7.9); NEUT % 86.1 % (47.0-73.0); PLATELET COUNT AUTOMATED 234 10*3/uL (130-400); RED BLOOD COUNT 3.82 10*6/uL (4.10-5.10); WHITE BLOOD COUNT 16.1 10*3/uL (4.8-10.8)
[2023-01-29 18:58] LABS: MEAN CELL VOLUME 97.9 fl (81.0-99.0)
[2023-01-29 19:31] LABS: TOTAL PROTEIN 6.3 gm/dL (6.0-8.0)
[2023-01-29 19:46] LABS: POTASSIUM 6.6 mmol/L (3.4-5.1)
== END 2023-01-29 21:06 | disposition short-term general hospital (02) | DRG 871 ==
LOC: ED 11:50 → 4E 13:48 → ICCU 13:48 → EDHOLD 13:48 → 4E 16:24 → ICCU 01-29 12:19
PROVIDERS: Emergency Medicine; Internal Medicine; ADMIT Internal Medicine; ATTEND Internal Medicine
PROC: 06HY33Z Insertion of Infusion Device into Lower Vein, Percutaneous Approach (ICD-10-PCS; principal; 2023-01-29)
PROC: 5A1935Z Respiratory Ventilation, Less than 24 Consecutive Hours (ICD-10-PCS; 2023-01-29)
DX: A41.9 Sepsis, unspecified organism (principal); I21.4 Non-ST elevation (NSTEMI) myocardial infarction; J18.9 Pneumonia, unspecified organism; N17.0 Acute kidney failure with tubular necrosis; J96.01 Acute respiratory failure with hypoxia; M62.82 Rhabdomyolysis; E87.1 Hypo-osmolality and hyponatremia; R65.20 Severe sepsis without septic shock; R73.9 Hyperglycemia, unspecified; J10.1 Influenza due to other identified influenza virus with other respiratory manifestations; F41.0 Panic disorder [episodic paroxysmal anxiety]; F41.1 Generalized anxiety disorder; N18.9 Chronic kidney disease, unspecified; Z86.16 Personal history of COVID-19

== ENCOUNTER 2023-03-06 09:57 | Emergency (ER) | payer OTHER ==
[~2023-03-06 09:57] MED LIST changes: +HYDROXYZINE HCL25 MG PO
[2023-03-06 10:11] VITALS: BP 100/53
[2023-03-07] MEDS ORDERED: METOPROLOL SUCC50 M2 PO (08:18)
== END 2023-03-06 11:09 | disposition home or self-care (01) ==
LOC: ED 09:57
DX: D64.9 Anemia, unspecified (principal); Z98.890 Other specified postprocedural states

== ENCOUNTER → 2023-03-07 | Outpatient (CLI) | payer OTHER ==
[2023-03-07] VITALS (8 sets, daily range): BP systolic 101–128; BP diastolic 61–88
[~2023-03-07] MED LIST changes: +METOPROLOL SUCC50 M2 PO
== END | disposition home or self-care (01) ==
LOC: TRNFUSION 00:32
PROVIDERS: ATTEND Internal Medicine
DX: D64.9 Anemia, unspecified (principal); K21.9 Gastro-esophageal reflux disease without esophagitis; F41.9 Anxiety disorder, unspecified; F32.A Depression, unspecified

== ENCOUNTER → 2023-04-29 | Outpatient (CLI) | payer OTHER ==
[2023-04-29 14:13] LABS: HEMATOCRIT 35.9 % (37.0-47.0); MEAN CELL VOLUME 94.5 fl (81.0-99.0); MEAN CORPUSCULAR HGB 30.5 pg (27.0-31.0); MEAN CORPUSCULAR HGB CONC 32.3 g/dl (33.0-37.0); MEAN PLATELET VOLUME 9.8 fl (9.6-12.3); RED BLOOD COUNT 3.8 10*6/uL (4.10-5.10); RED CELL DISTRI WIDTH 13.6 % (0-14.5)
[2023-04-29 14:40] LABS: CHOLESTEROL 256 mg/dL (<200); LDL CHOLESTEROL 143 mg/dL (9-159); TRIGLYCERIDES 260 mg/dl (<150)
[2023-04-29 14:47] LABS: FREE T4 1.04 ng/dl (0.89-1.76); POTASSIUM 4.4 mmol/L (3.4-5.1); TOTAL PROTEIN 7.4 gm/dL (6.0-8.0)
[2023-04-29 14:48] LABS: VITAMIN D, 25-HYDROXY 24.4 ng/mL (30-100)
[2023-05-04 00:05] LABS: TESTOSTERONE FREE, (DIRECT) 0.3 pg/mL (0.0-4.2)
== END | disposition home or self-care (01) ==
LOC: LAB 01:29
PROVIDERS: Pediatrics; ATTEND Physician Assistant
DX: D69.9 Hemorrhagic condition, unspecified (principal)

== ENCOUNTER → 2023-06-04 | Outpatient (CLI) | payer OTHER ==
[~2023-06-04] MED LIST changes: +Lidocaine Hydrochloride 5 ML AMP ONE; +SODIUM BICARBONATE 4.2% 5 ML VIAL ONE
[2023-06-04 10:17] LABS: ACT PARTIAL THROMBO TIME 31.6 SECONDS (20.0-32.1)
== END | disposition home or self-care (01) ==
LOC: SDC 01:31 → EDSTATUS 11:00 → SDC 11:00
PROVIDERS: ATTEND Physician Assistant
DX: R92.8 Other abnormal and inconclusive findings on diagnostic imaging of breast (principal)

== ENCOUNTER → 2023-06-24 | Outpatient (CLI) | payer OTHER ==
[~2023-06-24] MED LIST changes: -Lidocaine Hydrochloride 5 ML AMP ONE; -SODIUM BICARBONATE 4.2% 5 ML VIAL ONE
[2023-06-24 10:39] LABS: HEMATOCRIT 39.3 % (37.0-47.0); MEAN CELL VOLUME 91.8 fl (81.0-99.0); MEAN CORPUSCULAR HGB 29.7 pg (27.0-31.0); MEAN CORPUSCULAR HGB CONC 32.3 g/dl (33.0-37.0); RED BLOOD COUNT 4.28 10*6/uL (4.10-5.10); RED CELL DISTRI WIDTH 12.7 % (0-14.5); WHITE BLOOD COUNT 5.5 10*3/uL (4.8-10.8)
[2023-06-24 11:18] LABS: POTASSIUM 4.2 mmol/L (3.4-5.1)
[2023-06-25 04:06] LABS: THYROID PEROXIDASE (TPO) AB 11 IU/mL (0-34)
[2023-06-25 17:07] LABS: THYROGLOBULIN ANTIBODY <1.0 IU/mL (0.0-0.9)
== END | disposition home or self-care (01) ==
LOC: LAB 00:46
PROVIDERS: Physician Assistant; ATTEND Dermatology
DX: L65.0 Telogen effluvium (principal)

== ENCOUNTER → 2023-08-18 | Outpatient (CLI) | payer OTHER | END | disposition home or self-care (01) | LOC: RESCLI 01:42 | PROVIDERS: ATTEND Student in an Organized Health Care Education/Training Program | DX: D05.01 Lobular carcinoma in situ of right breast (principal); F41.9 Anxiety disorder, unspecified; I10 Essential (primary) hypertension; I26.99 Other pulmonary embolism without acute cor pulmonale; Z79.899 Other long term (current) drug therapy; Z86.16 Personal history of COVID-19; Z79.01 Long term (current) use of anticoagulants ==